=== PATIENT | female | born 2005 | race Two or more races ===

== ENCOUNTER 2025-04-01 19:28 | Emergency (ER) | payer OTHER ==
[~2025-04-01] VITALS: Ht 160 cm; Wt 70.3 kg
[2025-04-01] MEDS ORDERED: ALDACTONE100 MG PO (20:48)
[2025-04-01] MEDS ORDERED: MINOCYCLINE HCL50 M1 PO (20:48)
[2025-04-01] MEDS ORDERED: LIDOCAINE HCL 2%/EPINEPHRINE 20ML VIAL IJ STA (21:28)
[2025-04-01] MEDS ORDERED: POVIDONE-IODINE 118 ML BOTT TOP ONE (21:29)
[2025-04-01] MEDS ORDERED: LIDOCAINE HCL 1% 10ML VIAL ONE (21:29)
[2025-04-01] MEDS ORDERED: TETANUS & DIPHTHERIA TOX,ADULT 0.5 ML VIAL IM ONE (21:30)
[2025-04-01] MEDS ORDERED: DIPHTH,PERTUSS(ACELL),TET VAC 0.5 ML SYRINGE IM ONE (21:30)
[2025-04-01] MEDS ORDERED: LIDOCAINE HCL 1%/EPINEPHRINE 20ML VIAL IJ ONE (21:40)
[2025-04-01] MEDS ORDERED: HYDROGEN PEROXIDE 473 ML BOTTLE TOP ONE (21:41)
[2025-04-01] MEDS ORDERED: CHLORHEXIDINE GLUCONATE 120 ML BOTTLE TOP ONE (21:45)
[2025-04-01] MEDS ORDERED: BACITRACIN-NEOMYCIN-POLYMYXIN 0.9 GM PACKET TOP ONE (22:20)
[2025-04-01] MEDS ORDERED: DIPHTH,PERTUSS(ACELL),TET VAC 0.5 ML SYRINGE IM STA (22:31)
[2025-04-01] MEDS ORDERED: CEFAZOLIN SODIUM 1,000 MG VIAL IM STA (22:31)
[2025-04-01] MEDS ORDERED: CEFAZOLIN SODIUM 1,000 MG VIAL ONE (22:37)
[2025-04-01] MEDS ORDERED: CEFADROXIL500 MG PO (22:40)
[2025-04-01 22:50] VITALS: BP 137/82; O2SAT 100
== END 2025-04-01 22:54 | disposition home or self-care (01) ==
LOC: ER 19:28 → EMR PED 20:34
DX: S91.022A Laceration with foreign body, left ankle, initial encounter (principal); W05.2XXA Fall from non-moving motorized mobility scooter, initial encounter; Y93.I9 Activity, other involving external motion; Y92.413 State road as the place of occurrence of the external cause